=== PATIENT | male | born 1960 | race Caucasian/White ===

== ENCOUNTER 2021-03-08 06:59 | Day surgery (SDC) | payer OTHER ==
--- NOTE | 2021-03-07 14:07 | HP ---
DATE OF SURGERY: 03/08/2021 HISTORY OF PRESENT ILLNESS: The patient presents for follow up colonoscopy. The patient had colon polyps in the past. The patient also complains of symptomatic umbilical hernia. The patient has a small hernia on exam. The patient also has some incidental skin lesions he would like to have removed. These are of the left scapula and left lumbar area. PAST MEDICAL HISTORY: Hypertension. PAST SURGICAL HISTORY: Lithotripsy. ALLERGIES: CEPHALEXIN MONOHYDRATE. MEDICATIONS: Telmisartan, Coreg, Maxzide, Aleve, Claritin. FAMILY HISTORY: Hypertension and colon cancer in both parents. SOCIAL HISTORY: Denies tobacco. Drinks one beer a day. REVIEW OF SYSTEMS: CONSTITUTIONAL: Denies fever or chills. CHEST: Denies shortness of breath. CVS: Denies chest pain. ABDOMEN: Denies abdominal pain, nausea, vomiting, diarrhea, constipation or rectal bleeding. PHYSICAL EXAMINATION: GENERAL: No acute distress. CHEST: Nonlabored. No shortness of breath. CVS: Regular rate and rhythm. ABDOMEN: Soft. Umbilical hernia. INTEGUMENTARY: Skin lesion left scapula and left lumbar. IMPRESSION: History of colon polyps and positive family of colon cancer and atypical lesion of the left scapula and left lumbar area. PLAN: Colonoscopy, symptomatic umbilical hernia repair with possible mesh and excision of left scapula skin lesion and incision of left lumbar lesion with Dr. Viral Tovar. As dictated by Sujatha Christina NP.
[2021-03-08] MEDS ORDERED: Sensorcaine 0.25% 10 ML ONE (07:17)
[2021-03-08] MEDS ORDERED: Versed 2 MG/2 ML Injection IV ONE (07:56)
[2021-03-08] MEDS ORDERED: CEFAZOLIN 2 GM-D5W BAG** 2 GM/50 ML ML IV SCH (08:00)
[2021-03-08] MEDS ORDERED: Lactated Ringers 1,000 ML IV SCH ×2 (08:00)
[2021-03-08] MEDS ORDERED: Versed 2 MG/2 ML Injection ONE (08:22)
[2021-03-08] MEDS ORDERED: KEFZOL 1 GM ONE (09:08)
[2021-03-08] MEDS ORDERED: SUBLIMAZE 100 MCG/2 ML ONE ×4 (09:27→11:26)
[2021-03-08] MEDS ORDERED: Zofran 4 MG/2 ML VIAL ONE (09:28)
[2021-03-08] MEDS ORDERED: Decadron 4 MG INJ ONE (09:28)
[2021-03-08] MEDS ORDERED: DIPRIVAN 200 MG/20 ML IV ONE (09:28)
[2021-03-08] MEDS ORDERED: Xylocaine-Mpf 2% 5 Ml Vial ONE (09:35)
[2021-03-08] MEDS ORDERED: TORAdol 30 mg Injection ONE (09:46)
[2021-03-08] MEDS ORDERED: SUBLIMAZE 100 MCG/2 ML IV SCH (11:30)
[2021-03-08] MEDS ORDERED: OXYCODONE-ACETAMINOPHEN 10-325 ONE (11:34)
[2021-03-08] MEDS ORDERED: OXYCODONE-ACETAMINOPHEN 10-325 PO PRN (11:36)
[2021-03-08 11:45] VITALS: PULSE 48
[2021-03-08] MEDS ORDERED: OXYCODONE-ACETAMINOPHEN 10-325 PO SCH (11:45)
[2021-03-08 11:58] VITALS: BP 146/92; O2SAT 97
--- NOTE | 2021-03-08 12:33 | OP ---
SURGERY DATE/TIME: 03/08/2021 1395 PREOPERATIVE DIAGNOSES: 1) Three to five year follow up polyps. 2) Symptomatic umbilical hernia. 3) Symptomatic enlarging right chest wall lipoma. POSTOPERATIVE DIAGNOSIS: Severe diverticulosis but looked clinically stable. PROCEDURES: 1) Umbilical hernia primary repair of a multifocal umbilical hernia with no mesh. 2) Colonoscopy complete to cecum with findings of severe diverticulosis otherwise normal. 3) Excision of 1.5 cm lipoma right chest wall with closure. SURGEON: Viral Tovar M.D. PLASTIC MACHINE OPERATOR: Michael Leong M.D. ANESTHESIA: General. COMPLICATIONS: None. CONDITION: Stable. INDICATION: A patient requiring surgery and evaluation. DESCRIPTION OF PROCEDURE: Taken to the OR. General anesthetic. Routine prep and drape. A 2 cm incision made over the right chest wall and 1.5 cm lipoma removed in its entirety. Hemostasis obtained with electrocautery. Closed with 4-0 Vicryl and Steri-Strips. Umbilicus approach transumbilically. There were four or five components of this. One of them was fairly big and up anteriorly close to the skin. These were all taken down and imbricated. The fascia was mobilized, was brought to itself with five inverting sutures #0 Prolene which were all placed. Bag held up, tied and secured. Umbilicus reapproximated with 4-0 Vicryl. Sterile compressive dressing applied. The patient tolerated the procedure satisfactorily. The patient turned sideways. Anal digital examination normal. Scope introduced. Scope advanced to the cecum. Base of the appendix, ileocecal valve, cecum, ascending, hepatic, transverse, splenic, descending all normal. Sigmoid very significant diverticulosis. It was severe in number but yet the lumen integrity was still preserved and still fairly decent diameter. The diameter was about a scope and three-quarters wide. No suggestion of any stricture. There was not much spasm. The rectum and anus normal. PLAN: Follow up scope in three to five years.
== END 2021-03-08 12:10 | disposition home or self-care (01) ==
LOC: SDC 06:59
PROVIDERS: ATTEND Surgery
DX: Z09 Encounter for follow-up examination after completed treatment for conditions other than malignant neoplasm (principal); Z86.010 Personal history of colon polyps; K42.9 Umbilical hernia without obstruction or gangrene; D17.1 Benign lipomatous neoplasm of skin and subcutaneous tissue of trunk; K57.30 Diverticulosis of large intestine without perforation or abscess without bleeding; Z79.899 Other long term (current) drug therapy
CPT/HCPCS: 88304; J0690; J1100; J1885; J2250; J2405; J2704; J3010; A9270-GY